=== PATIENT | male | born 1975 | race Caucasian/White ===

== ENCOUNTER 2019-10-12 11:12 | Emergency (ER) | payer SELFPAY ==
[2019-10-12 11:35] VITALS: BP 126/80
--- NOTE | 2019-10-12 11:41 | UC ---
Dental HPI - HPI Summary HPI Summary: 44-year-old male who states he has "never been to a dentist". He started having a right lower toothache and today has mild right lower facial swelling. - History of Current Complaint Chief Complaint: UCDentalProblem Stated Complaint: DENTAL Time Seen by Provider: 10/12/19 11:32 Hx Obtained From: Patient Onset/Duration: Gradual Onset Severity: Moderate Pain Intensity: 7 Aggravating Factor(s): Chewing Alleviating Factor(s): Nothing Related History: Swelling - Swelling of right lower jaw today. - Allergies/Home Medications Allergies/Adverse Reactions: Allergies Allergy/AdvReac Type Severity Reaction Status Date / Time No Known Allergies Allergy Verified 10/12/19 11:30 Home Medications: Home Medications Ibuprofen TAB* [Advil TAB*] 600 mg PO Q6H PRN 10/12/19 [History Confirmed ] PMH/Surg Hx/FS Hx/Imm Hx Previously Healthy: Yes Cardiovascular History: Myocardial Infarction - [place] in 2018 with 4 stents - Surgical History Surgical History: Yes Surgery Procedure, Year, and Place: Cardiac Artery Stenting, ~2018, [place] - Family History Known Family History: Positive: Non-Contributory - Social History Lives: With Family Alcohol Use: None Substance Use Type: None Smoking Status (MU): Heavy Every Day Tobacco Smoker Type: Cigarettes Amount Used/How Often: 1 1/2 PPD Length of Time of Smoking/Using Tobacco: Since Age 14 Household Exposure Type: Cigarettes Review of Systems All Other Systems Reviewed And Are Negative: Yes Skin: Positive: Other - Mild swelling of right lower jaw. ENT: Positive: Dental Pain Is Patient Immunocompromised?: No Physical Exam Triage Information Reviewed: Yes Appearance: Well-Appearing, No Pain Distress, Well-Nourished Vital Signs: Initial Vital Signs Temp 98.7 F 10/12/19 11:28 Pulse 102 10/12/19 11:28 Resp 18 10/12/19 11:28 BP 126/80 10/12/19 11:28 Pulse Ox 100 10/12/19 11:28 Vital Signs Reviewed: Yes Eyes: Positive: Conjunctiva Clear ENT: Positive: Hearing grossly normal, Pharynx normal, TMs normal, Uvula midline Dental: Positive: Gross Decay/Caries @, Dental Fracture @, Other: - Patient has numerous dental caries, broken teeth, the area of concern is a right lower molar where he has to broken molars the gumline itself is erythematous and swelling there is no evidence of abscess formation. Neck: Positive: Supple, Nontender, No Lymphadenopathy Respiratory: Positive: Lungs clear, Normal breath sounds, No respiratory distress, No accessory muscle use Cardiovascular: Positive: RRR, No Murmur, Pulses Normal, Brisk Capillary Refill Skin: Positive: Other - See above notes Dental Complaint Course/Dx - Course Course Of Treatment: The patient is comfortable here. I'm going to start him on amoxicillin. He was given a list of dentists locally and was advised to call today and make an appointment to be seen prior to the antibiotic being finished. He can alternate Tylenol every 4 hours and Motrin every 8 hours for pain. - Differential Dx/Diagnosis Provider Diagnosis: Toothache Discharge ED - Sign-Out/Discharge Documenting (check all that apply): Patient Departure All imaging exams completed and their final reports reviewed: No Studies - Discharge Plan Condition: Fair Disposition: HOME Prescriptions: Amoxicillin PO (*) [Amoxicillin 875 MG (*)] 875 mg PO BID 10 Days #20 tab Ibuprofen TAB* [Motrin TAB* 600 MG] 600 mg PO Q8H PRN #25 tab PRN Reason: Pain - Mild Patient Education Materials: Toothache (ED) Referrals: Coty Hernández PA [Primary Care Provider] - Additional Instructions: You may take Tylenol every 4 hours and alternate with Motrin every 8 hours. Follow-up with the dentist, call today and make an appointment. If you have worsening symptoms, fever or chills and unable keep the medicine down your to go to the emergency room. - Billing Disposition and Condition Condition: FAIR Disposition: Home
== END 2019-10-12 11:47 | disposition home or self-care (01) ==
LOC: UCCORT 11:12
DX: K08.89 Other specified disorders of teeth and supporting structures (principal); I25.2 Old myocardial infarction; F17.210 Nicotine dependence, cigarettes, uncomplicated
CPT/HCPCS: 99202; G0463

== ENCOUNTER 2019-11-28 10:00 | Emergency (ER) | payer SELFPAY ==
[2019-11-28 10:17] VITALS: BP 134/72
--- NOTE | 2019-11-28 10:17 | UC ---
Throat Pain/Nasal Abdelrahman HPI - HPI Summary HPI Summary: 44 y/o male presents to the urgent care c/o fever, chills, body aches and dry cough since yesterday afternoon. He has taking Tylenol and ibuprofen prn w/ fever relief. Fever yesterday of 100.5F w/ one episode of vomiting. He Took ibuprofen at 0730 today. His family at home has similar symptoms. He couldn't sleep last night due to cough. Mild sore throat. Pain is 5/10 in his body and MARTINEZ. Pt denies SOB, wheezing, chest pain, dizziness, abdominal pain, N/V/D. - History of Current Complaint Stated Complaint: FEVER COUGH ACHY Time Seen by Provider: 11/28/19 10:16 Hx Obtained From: Patient Onset/Duration: Gradual Onset, Lasting Days - 1 day, Still Present, Worse Since - last night Severity: Moderate Pain Intensity: 5 - body aches/MARTINEZ Pain Scale Used: 0-10 Numeric Cough: Nonproductive Associated Signs & Symptoms: Positive: Sinus Discomfort, Nasal Discharge, Fever - 100.5F, Vomiting - 1 episode yesterday. Negative: Dysphagia, Wheezing, Hoarseness, Rash - Epiglottits Risk Factors Epiglottis Risk Factors: Negative - Allergies/Home Medications Allergies/Adverse Reactions: Allergies Allergy/AdvReac Type Severity Reaction Status Date / Time No Known Allergies Allergy Verified 11/28/19 10:14 Home Medications: Home Medications Benzonatate CAP* [Tessalon 100 MG CAP*] 100 mg PO TID PRN #21 cap 11/28/19 [Rx] Oseltamivir CAP* [Tamiflu CAP*] 75 mg PO BID #10 cap 11/28/19 [Rx] PMH/Surg Hx/FS Hx/Imm Hx Previously Healthy: Yes Cardiovascular History: Myocardial Infarction - 2018 - Surgical History Surgical History: Yes Surgery Procedure, Year, and Place: Cardiac Artery Stenting, ~2018, [place] - Family History Known Family History: Positive: Cardiac Disease, Diabetes, Non-Contributory - Social History Occupation: Employed Full-time Lives: With Family Alcohol Use: None Substance Use Type: None Smoking Status (MU): Heavy Every Day Tobacco Smoker Type: Cigarettes Amount Used/How Often: 1 1/2 PPD Length of Time of Smoking/Using Tobacco: Since Age 14 Household Exposure Type: Cigarettes Review of Systems All Other Systems Reviewed And Are Negative: Yes Constitutional: Positive: Fever, Chills, Fatigue, Other - body aches Skin: Positive: Negative Eyes: Positive: Negative ENT: Positive: Sore Throat, Nasal Discharge, Sinus Congestion, Sinus Pain/ Tenderness, Other - PND Respiratory: Positive: Cough - dry Cardiovascular: Positive: Negative Gastrointestinal: Positive: Vomiting - 1 episode yesterday. Negative: Diarrhea , Nausea Genitourinary: Positive: Negative Motor: Positive: Negative Neurovascular: Positive: Negative Musculoskeletal: Positive: Myalgia Neurological/Mental Status: Positive: Headache Psychological: Positive: Negative Is Patient Immunocompromised?: No Physical Exam - Summary Physical Exam Summary: VITAL SIGNS: Reviewed. GENERAL: Patient is a well developed and nourished male who is sitting comfortably in the examining table. Patient is not in any acute respiratory distress. HEAD AND FACE: No signs of trauma. No ecchymosis, hematomas or skull depressions. No sinus tenderness. EYES: PERRLA, EOMI x 2, No injected conjunctiva, no nystagmus. No photophobia. EARS: Hearing grossly intact. Ear canals and tympanic membranes are within normal limits. MOUTH: Positive pharynx with mild erythema, no exudates, No B/L tonsillar enlargement , no exudate. Uvula in midline. edematous nasal mucosa w/ clear nasal discharge, clear PND NECK: Supple, trachea is midline, Positive anterior cervical lymphadenopathy, no JVD, no carotid bruit, no c-spine tenderness, neck with full ROM. No meningeal signs, no Kernig's or brudzinskis signs. CHEST: Symmetric, no tenderness at palpation LUNGS: Clear to auscultation bilaterally. No wheezing or crackles. CVS: Regular rate and rhythm, S1 and S2 present, no murmurs or gallops appreciated. ABDOMEN: Soft, non-tender. No signs of distention. No rebound no guarding, and no masses palpated. Bowel sounds are normal. EXTREMITIES: FROM in all major joints, no edema, no cyanosis or clubbing. NEURO: Alert and oriented x 3. No acute neurological deficits. Pt follows commands. SKIN: Dry and warm Triage Information Reviewed: Yes Throat Pain/Nasal Course/Dx - Course Course Of Treatment: 44 y/o male presents to the urgent care c/o fever, chills, body aches and dry cough since yesterday afternoon. He has taking Tylenol and ibuprofen prn w/ fever relief. Fever yesterday of 100.5F w/ one episode of vomiting. He Took ibuprofen at 0730 today. His family at home has similar symptoms. He couldn't sleep last night due to cough. Mild sore throat. Pain is 5/10 in his body and MARTINEZ. Pt denies SOB, wheezing, chest pain, dizziness, abdominal pain, N/V/D. Hx obtained, No medications at home. Pt with URI on examination. Rapid strep ordered, result: negative.Influenza A&B ordered: result: Influenza B positive.Pt Rx Tamiflu and Tessalon tabs PO to alleviate symptoms. Advised to continue alternating Ibuprofen and Tylenol to control fever and also on hand washing and wearing a mask to avoid spreading. Pt advised to rest, increase fluid intake, eat well and avoid strenuous exercise. If symptoms do not improve or worsen advised to return to the urgent care or f/u with her PCP for further evaluation and treatment. Pt understood and agreed w/ plan of care - Differential Dx/Diagnosis Differential Diagnosis/HQI/PQRI: Influenza, Laryngitis, Mononucleosis, Pharyngitis, Sinusitis, Tonsillitis, URI Provider Diagnosis: Influenza A, Cough Discharge ED - Sign-Out/Discharge Documenting (check all that apply): Patient Departure - D/c home All imaging exams completed and their final reports reviewed: No Studies - Discharge Plan Condition: Stable Disposition: HOME Prescriptions: Benzonatate CAP* [Tessalon 100 MG CAP*] 100 mg PO TID PRN #21 cap PRN Reason: Cough Oseltamivir CAP* [Tamiflu CAP*] 75 mg PO BID #10 cap Patient Education Materials: Influenza (ED) Forms: *Work Release Referrals: Coty Hernández PA [Primary Care Provider] - 3 Days Additional Instructions: 1- Please take the full course of the antiviral to avoid resistance. Encourage hand washing and wear a mask to avoid spreading. 2-Please continue taking Tylenol or Ibuprofen PO q6-8hrs prn as instructed after meals to alleviate fever, and sore throat. Increase fluid intake, eat well, rest and avoid strenuous exercise 3- Take Tessalon tabs as directed to alleviate cough. Take Vitamin C 4-If symptoms do not improve or worsen please return to the urgent care or f/u with your PCP in 2 days for further evaluation and treatment. - Billing Disposition and Condition Condition: STABLE Disposition: Home
[2019-11-28 10:27] LABS: Influenza A Molecular POSITIVE (Negative)
== END 2019-11-28 10:39 | disposition home or self-care (01) ==
LOC: UCCORT 10:00
DX: J10.1 Influenza due to other identified influenza virus with other respiratory manifestations (principal); R05 Cough; I25.2 Old myocardial infarction; F17.210 Nicotine dependence, cigarettes, uncomplicated
CPT/HCPCS: 99212; G0463